=== PATIENT | female | born 1970 | race Caucasian/White ===

== ENCOUNTER 2018-03-03 09:00 | Day surgery (SDC) | payer BC ==
[2018-03-03] MEDS ORDERED: Ringers Lactate 1,000 ML IV ONE (09:15)
[2018-03-03 09:35] LABS: Specific Gravity 1.025 (1.005-1.030)
[2018-03-03] MEDS ORDERED: PROPOFOL 200 MG/20 ML VIAL IV ONE (10:13)
[2018-03-03] MEDS ORDERED: FENTANYL CITR 100 MCG/2 ML ONE ×2 (10:14→11:23)
[2018-03-03] MEDS ORDERED: LIDOCAINE 1% MPF 5 ML VIAL ONE ×2 (10:14→10:38)
[2018-03-03] MEDS ORDERED: MIDAZOLAM HCL 2 MG/2 ML INJ ONE (10:14)
[2018-03-03] MEDS ORDERED: ONDANSETRON HCL 40 MG/20 ML VIAL ONE (10:15)
[2018-03-03] MEDS: CEFAZOLIN/SWI 2gm 2 GM/20 ML SYR IV SCH ×2 (10:38→10:43)
[2018-03-03] MEDS ORDERED: NA CHLORIDE 0.9% 0 ML ONE (11:06)
[2018-03-03] MEDS ORDERED: KETOROLAC 30 MG/ML INJ ONE (11:34)
[2018-03-03] MEDS ORDERED: SILVER SULFADIAZINE 1% 25 GM TOP ONE ×2 (11:36→11:50)
[2018-03-03] MEDS: MEPERIDINE HCL 50 MG/ML AMP ONE ×4 (11:56→12:14)
[2018-03-03] MEDS ORDERED: CODEINE 30MG/APAP 300MG TAB ONE (12:59)
--- NOTE | 2018-03-03 13:45 | OP ---
Date of Procedure: 03/03/2018 Surgeon: Linda Torres MD Preoperative Diagnoses: Heavy bleeding and vulvar condylomata. Postoperative Diagnoses: Heavy bleeding and vulvar condylomata. Procedures Performed: 1.Hysteroscopy, dilation and curettage. 2.Vulvar colposcopy and ablation of condylomata. Anesthesia: General with LMA. Specimens: Endometrial curettings. Complications: None. Drains: None. Condition: The patient is stable. Indications: The patient is a 47-year-old with complaints of vulvar irregularities, which were biops ied and found to be condylomata. She also has abnormal bleeding, which was assessed with an ultrasou nd and she needs endometrial sampling to rule out endometrial atypia or malignancy. So she was conse nted for direct visualization and sampling with hysteroscopy, D and C, and visualization of the condy lomata with vulvar colposcopy followed by ablation of these. Description Of Procedure: After informed consent was verified, she was taken back to the OR, 2 g of Ancef were given due to the condyloma ablation. The patient was taken to the OR. She was placed in supine fashion on the operating table. After gen eral anesthesia was given, she was placed in a dorsal lithotomy position. Pelvic exam performed. Ut erus found to be anteflexed, 8 weeks size. No adnexal masses. On vulvar colposcopy, there were multiple condyloma along the labia minor and on the vestibule on the posterior aspect. Once all these were identified, then the colposcope was removed. Speculum was pl aced to expose the cervix. Anterior lip grasped with 2 Allis clamps. Prep x3 with Betadine was done . SlimLine diagnostic hysteroscope was used to perform direct hysteroscopy through the cervical avery l into the uterine cavity. Cavity was well visualized. Curettings were performed. There were no in tracavitary lesions. Both tubal ostia were unremarkable. Endometrium thickened. After the scope was removed, curettings were performed with a #2 curette. Adequate sampling was obta ined. The endometrial curettings were sent for permanent pathology. After the instruments were removed from the vagina, then attention was directed to the condylomata. All the condylomata that appeared to be pedunculated were all removed with the help of Adsons and sci ssors. The bases of all these were thoroughly ablated with a monopolar cautery at 30 massey power. Rest of the condylomata were all ablated. There were 11 of them on the labia minora. Then, the vest ibule had more on the right than on the left, but they were all ablated with the tip of the needle to which monopolar was hooked to. Once all this was done and she was cleaned up with saline, checked a gain for any more that were unrecognized. Nothing else was found, so this time proceeded with comple ting her procedure. She was extubated in the OR and taken to PACU in stable condition after Silvaden e cream was applied to the wounds and 4 x 4 Kerlix bandages were placed. She will follow up with me in 1 week. EBL minimal. No complications or drains. CELINA/MONO Voice ID: [id number] Report ID: [id number]
== END 2018-03-03 13:20 | disposition home or self-care (01) ==
LOC: OR 09:00
PROVIDERS: ATTEND Obstetrics & Gynecology
PROC: 0U5MXZZ Destruction of Vulva, External Approach (ICD-10-PCS; principal; 2018-03-03 10:45)
PROC: 0UDB7ZX Extraction of Endometrium, Via Natural or Artificial Opening, Diagnostic (ICD-10-PCS; 2018-03-03 10:45)
PROC: 0UJD8ZZ Inspection of Uterus and Cervix, Via Natural or Artificial Opening Endoscopic (ICD-10-PCS; 2018-03-03 10:45)
DX: N92.1 Excessive and frequent menstruation with irregular cycle (principal); A63.0 Anogenital (venereal) warts; I10 Essential (primary) hypertension; E78.5 Hyperlipidemia, unspecified; K21.9 Gastro-esophageal reflux disease without esophagitis; E66.9 Obesity, unspecified; Z68.37 Body mass index [BMI] 37.0-37.9, adult; F17.210 Nicotine dependence, cigarettes, uncomplicated; Z83.3 Family history of diabetes mellitus; Z80.3 Family history of malignant neoplasm of breast
CPT/HCPCS: 81025; 88305; J0690; J2175; J2250; J2405; J3010; J7030

== ENCOUNTER 2023-11-07 09:03 | Emergency (ER) | payer OTHER ==
[2023-11-07] MEDS ORDERED: NA CHLORIDE 0.9% 1,000 ML ONE (09:14)
[2023-11-07 09:30] LABS: Absolute Eosinophils 0.1 K/uL (0-0.5); Absolute Monocytes 0.6 K/uL (0.1-1.3); Absolute Neutrophil 11.1 K/uL (1.8-8.0); Basophils % 0.1 % (0-1.3); Eosinophils % 0.4 % (0-4.4); Hematocrit 39.3 % (36.0-45.0); Lymphocytes % 7.5 % (15.3-44.8); MCH 33.7 pg (27.0-35.0); MCV 102.2 fL (80-100); MPV 8.2 fL (7.6-11.3); Monocytes % 4.6 % (3.3-12.3); Neutrophils % 87.4 % (41.7-73.7); Platelets 243 thou/uL (152-406); RBC Red Blood Cell Count 3.85 M/uL (3.86-4.86); Red Cell Distribution Width 12.7 % (12.1-15.2)
[2023-11-07 09:42] LABS: Specific Gravity 1.016 (1.005-1.030); Sqamous Epithelial None Seen /HPF (None Seen); Urine Bacteria <20 /HPF (<20); Urine Bilirubin NEGATIVE (Negative); Urine Blood 3+ (OVER) (Negative); Urine Clarity Extremely Turbid (Clear); Urine Color Light-Orange (Yellow); Urine Culture Reflex Order REFLEXED; Urine Glucose NEGATIVE (Negative); Urine Ketones NEGATIVE (Negative); Urine Microscopic Reflex YN ORDER UMIC; Urine Mucus 1+ /HPF (None Seen); Urine Nitrite NEGATIVE (Negative); Urine Protein 2+ (Negative); Urine RBC >50 /HPF (None Seen); Urine Urobilinogen Normal (Normal); Urine WBC >50 /HPF (<5); Urine pH 6.5 (5.0-7.0)
[2023-11-07 09:48] LABS: Albumin 4.1 g/dL (3.4-5.0); Albumin/Globulin Ratio 1.2 (1.1-1.8); Bilirubin Total 0.8 mg/dL (0.2-1.0); Globulin 3.4 g/dL (2.3-3.5); Protein, Total 7.5 g/dL (6.4-8.2)
[2023-11-07 10:15] LABS: Blood Morphology Comment NOT SEEN (NOT SEEN); Platelet Estimate ADEQ; White Blood Cell Scan OK (OK)
--- NOTE | 2023-11-07 10:26 | RAD REPORT ---
EXAM DESCRIPTION: CTAbdomen Pelvis W Contrast - 11/07/2023 10:16 am CLINICAL HISTORY: HEMATURIA COMPARISON: No comparisons TECHNIQUE: CT of the abdomen and pelvis was performed. All CT scans are performed using dose optimization technique as appropriate and may include automated exposure control or mA/KV adjustment according to patient size. FINDINGS: Lower chest: Small hiatal hernia. Liver: No acute abnormality or suspicious lesions. Biliary: No biliary ductal dilatation. Stomach: No significant focal abnormality. Duodenum: No significant focal abnormality. Pancreas: No significant abnormality. Spleen: No significant abnormality. Adrenal: No suspicious lesions. Kidney/ureter: No hydronephrosis. 2 mm stone in the left kidney. Too small to characterize and/or marcus ign appearing renal lesions are noted. Retroperitoneum: No retroperitoneal adenopathy. Vascular: No aneurysm. Bowel: Normal appendix.. Peritoneum: No ascites or free air. Tiny fat containing umbilical hernia. Bladder: Bladder wall thickening and hyperenhancement. Reproductive: No adnexal masses. Bones: No acute fracture. Other: n/a IMPRESSION: Bladder wall thickening, stranding, and hyperenhancement concerning for cystitis. Nonobs tructive left nephrolithiasis. No ureteral calculi. Normal appendix.
--- NOTE | 2023-11-07 11:01 | EDPHYS ---
Physician Documentation [facility] Name: Lizabeth Hennessy Age: 53 yrs Sex: Female : 1970 Arrival Date: 11/07/2023 Time: 09:03 Bed 5 Private MD: Antonia Brar ED Physician Eugene Magaña HPI: 11/06 09:11 This 53 yrs old Female presents to ER via Ambulatory with complaints of Urinary Problem.[facility] 09:11 53-year-old female with a past medical history of hypertension and hyperlipidemia jh7 presents to the ER for hematuria. She reports that yesterday she noticed urinary frequency, only producing small amounts of urine, and slight dysuria. This morning she reports blood in the urine and producing small clots. She denies fever, flank pain, abdominal pain, or nausea/vomiting. Past surgical history includes a total hysterectomy. She states that the last time she urinated she was producing small clots as well.. Historical: - Allergies: 09:11 Sulfa (Sulfonamide Antibiotics); ll1 - Home Meds: 09:11 Lisinopril Oral [Active]; carvedilol phosphate oral [Active]; Simvastatin Oral ll1 [Active]; Naproxen Oral [Active]; - PMHx: 09:11 Hypertensive disorder; Hypercholesterolemia; ll1 - PSHx: 09:11 Total abdominal hysterectomy; ll1 - Immunization history:: Adult Immunizations up to date. - Infectious Disease History:: Denies. - Social history:: Smoking status: Reported history of juuling and/or vaping. ROS: 09:11 Constitutional: Per HPI 7 Exam: 09:11 Constitutional: This is a well developed, well nourished patient who is awake, alert, jh7 and in no acute distress. Head/Face: Normocephalic, atraumatic. Cardiovascular: Regular rate and rhythm with a normal S1 and S2. No gallops, murmurs, or rubs. Normal PMI, no JVD. No pulse deficits. Respiratory: Lungs have equal breath sounds bilaterally, clear to auscultation and percussion. No rales, rhonchi or wheezes noted. No increased work of breathing, no retractions or nasal flaring. Abdomen/GI: Soft, non-tender, with normal bowel sounds. No distension or tympany. No guarding or rebound. No evidence of tenderness throughout. Skin: Warm, dry with normal turgor. Normal color with no rashes, no lesions, and no evidence of cellulitis. MS/ Extremity: Pulses equal, no cyanosis. Neurovascular intact. Full, normal range of motion. Neuro: Awake and alert, GCS 15, oriented to person, place, time, and situation. Motor strength 5/5 in all extremities. Sensory grossly intact. Normal gait. 09:11 : CVA tenderness, is absent, Vital Signs: 09:13 BP 176 / 93; Pulse 87; Resp 17; Temp 97.5; Pulse Ox 100% on R/A; Weight 104.33 kg; ll1 Height 5 ft. 6 in. ; Pain 0/10; 09:25 BP 167 / 88; Pulse 82; Resp 18; Pulse Ox 100% on R/A; ld1 10:27 Pulse 79; Resp 18; Pulse Ox 100% on R/A; ld1 11:22 BP 147 / 60; Pulse 79; Resp 18; Pulse Ox 100% on R/A; ld1 09:13 Body Mass Index 37.12 (104.33 kg, 167.64 cm) ll1 09:13 Pain Scale: Adult ll1 MDM: 09:05 Patient medically screened. [facility] 10:32 Differential diagnosis: UTI, Pyelonephritis, cystitis, nephrolithiasis. Data reviewed: [facility] vital signs, nurses notes, lab test result(s), radiologic studies, CT scan. I considered the following discharge prescriptions or medication management in the emergency department Medications were administered in the Emergency Department. See MAR. Care significantly affected by the following chronic conditions: Hypertension. Counseling: I had a detailed discussion with the patient and/or guardian regarding the historical points, exam findings, and any diagnostic results supporting the discharge/admit diagnosis, to return to the emergency department if symptoms worsen or persist or if there are any questions or concerns that arise at home. Response to treatment: the patient's symptoms have markedly improved after treatment. 11/06 09:12 Order name: CBC with Diff; Complete Time: 10:18 [facility] 11/06 09:12 Order name: CMP; Complete Time: 09:59 [facility] 11/06 09:12 Order name: Urinalysis w/ reflexes; Complete Time: 59 [facility] 11/06 09:33 Order name: CBC Smear Scan; Complete Time: 10:18 [facility] 11/06 09:46 Order name: Urine Culture [facility] 11/06 09:59 Order name: CT Abd/Pelvis - IV Contrast Only; Complete Time: 10:28 [facility] 11/06 09:12 Order name: IV Saline Lock; Complete Time: 09:25 [facility] 11/06 09:12 Order name: Labs collected and sent; Complete Time: :25 [facility] Administered Medications: 09:25 Drug: NS 0.9% IV 1000 ml IV at 1 bolus Per protocol; 1000 mL bolus Route: IV; Rate: 1 ld1 bolus; Site: left antecubital; 11:12 Drug: Rocephin IV 1 grams IV at 1 calculated rate once; Given slow IV push per pharmacy ld1 instructions Route: IV; Rate: 1 calculated rate; Site: left antecubital; Disposition: 11:42 Co-signature as Attending Physician, Eugene Magaña MD I reviewed the patient's care rt provided by the Advanced Practice Provider and agree with the diagnosis and treatment plan. Disposition Summary: 11/07/23 11:00 Discharge Ordered Notes: Location: Home [facility] Problem: new [facility] Symptoms: have improved [facility] Condition: Stable [facility] Diagnosis - Acute cystitis with hematuria [facility] Followup: [facility] - With: Antonia Brar - When: 2 - 3 days - Reason: Recheck today's complaints Discharge Instructions: - Discharge Summary Sheet [facility] - Urinary Tract Infection, Adult [facility] Forms: - Medication Reconciliation Form [facility] - Thank You Letter [facility] - Antibiotic Education [facility] - Patient Portal Instructions [facility] - Leadership Thank You Letter [facility] Prescriptions: - Cipro 500 mg Oral tablet - take 1 tablet ORAL route every 12 hours for 7 days; 14 tablet; Refills: 0, [facility] Product Selection Permitted Signatures: Dispatcher [employer] Mary Diggs RN RN 1 Charmaine Ramos RN RN ld1 Seda Gabriel FNP DELIMBER OPERATOR [facility] Euegne Magaña MD MD rt Corrections: (The following items were deleted from the chart) 09: 09:12 CBC+H.LAB.BRZ ordered. EDMS EDMS 09:13 09:12 COMPREHENSIVE METABOLIC PANEL+C.LAB.BRZ ordered. EDMS EDMS :13 09:12 Urinalysis+U.LAB.BRZ ordered. EDMS EDMS
--- NOTE | 2023-11-07 11:01 | ER ---
Nurse's Notes [facility] Name: Lizabeth Hennessy Age: 53 yrs Sex: Female : 1970 Arrival Date: 11/07/2023 Time: 09:03 Bed 5 Private MD: Antonia Brar Diagnosis: Acute cystitis with hematuria Presentation: 11/06 09:13 Chief complaint: Patient states: Urinary frequency with oliguria noticed yesterday. ll1 Bloody urine started this AM with discomfort and pressure. No fever. Coronavirus screen: Client denies travel out of the [place] in the last 14 days. At this time, the client does not indicate any symptoms associated with coronavirus-19. Ebola Screen: Patient denies travel to an Ebola-affected area in the 21 days before illness onset. Initial Sepsis Screen: Does the patient meet any 2 criteria? No. Patient's initial sepsis screen is negative. Does the patient have a suspected source of infection? No. Patient's initial sepsis screen is negative. Risk Assessment: Do you want to hurt yourself or someone else? Patient reports no desire to harm self or others. Onset of symptoms was November 06, 2023. 09:13 Method Of Arrival: Ambulatory ll1 09:13 Acuity: MICHELE 3 ll1 Triage Assessment: 09:15 General: Appears uncomfortable, Behavior is calm, cooperative, appropriate for age. ll1 Pain: Denies pain. Neuro: No deficits noted. : Reports burning with urination, pain with urination, urgency, urinary frequency, blood in urne. Historical: - Allergies: 09:11 Sulfa (Sulfonamide Antibiotics); ll1 - Home Meds: 09:11 Lisinopril Oral [Active]; carvedilol phosphate oral [Active]; Simvastatin Oral ll1 [Active]; Naproxen Oral [Active]; - PMHx: 09:11 Hypertensive disorder; Hypercholesterolemia; ll1 - PSHx: 09:11 Total abdominal hysterectomy; ll1 - Immunization history:: Adult Immunizations up to date. - Infectious Disease History:: Denies. - Social history:: Smoking status: Reported history of juuling and/or vaping. Screenin:25 [facility] ED Fall Risk Assessment (Adult) History of falling in the last 3 months, ld1 including since admission No falls in past 3 months (0 pts). Abuse screen: Denies threats or abuse. Denies injuries from another. Nutritional screening: No deficits noted. Tuberculosis screening: No symptoms or risk factors identified. Assessment: 09:25 General: Appears in no apparent distress. comfortable, Behavior is calm, cooperative, ld1 appropriate for age. Pain: Denies pain. Neuro: Level of Consciousness is awake, alert, obeys commands, Oriented to person, place, time, situation. Cardiovascular: Capillary refill < 3 seconds Patient's skin is warm and dry. Respiratory: Airway is patent Respiratory effort is even, unlabored. GI: Abdomen is round non-distended. : Urine is tea colored Reports urgency, urinary frequency. EENT: No signs and/or symptoms were reported regarding the EENT system. Derm: No signs and/or symptoms reported regarding the dermatologic system. Musculoskeletal: No signs and/or symptoms reported regarding the musculoskeletal system. 11:21 Reassessment: Pt received antibiotic. Waiting on fluids to complete prior to D/C. ld1 Vital Signs: 09:13 BP 176 / 93; Pulse 87; Resp 17; Temp 97.5; Pulse Ox 100% on R/A; Weight 104.33 kg; ll1 Height 5 ft. 6 in. ; Pain 0/10; 09:25 BP 167 / 88; Pulse 82; Resp 18; Pulse Ox 100% on R/A; ld1 10:27 Pulse 79; Resp 18; Pulse Ox 100% on R/A; ld1 11:22 BP 147 / 60; Pulse 79; Resp 18; Pulse Ox 100% on R/A; ld1 09:13 Body Mass Index 37.12 (104.33 kg, 167.64 cm) ll1 09:13 Pain Scale: Adult ll1 ED Course: 09:05 Patient arrived in ED. mr 09:05 Seda Gabriel FNP [facility] jh7 09:05 Eugene Magaña MD is Attending Physician. jh7 09:06 Antonia Brar is Private Physician. mr 09:11 Charmaine Ramos, RN is Primary Nurse. ld1 09:11 Arm band placed on Patient placed in an exam room, on a stretcher. ll1 09:15 Triage completed. ll1 09:25 Patient has correct armband on for positive identification. Placed in gown. Bed in low ld1 position. Call light in reach. Side rails up X2. ekg monitor tech on. Pulse ox on. NIBP on. Door closed. Noise minimized. Warm blanket given. 09:25 No provider procedures requiring assistance completed. Inserted saline lock: 20 gauge ld1 in left antecubital area, using aseptic technique. Blood collected. 10:18 CT Abd/Pelvis - IV Contrast Only In Process Unspecified. EDHI 11:00 Antonia Brar is Referral Physician. [facility] 11:39 IV discontinued, intact, bleeding controlled, No redness/swelling at site. ld1 Administered Medications: 09:25 Drug: NS 0.9% IV 1000 ml IV at 1 bolus Per protocol; 1000 mL bolus Route: IV; Rate: 1 ld1 bolus; Site: left antecubital; 11:12 Drug: Rocephin IV 1 grams IV at 1 calculated rate once; Given slow IV push per pharmacy ld1 instructions Route: IV; Rate: 1 calculated rate; Site: left antecubital; Medication: 09:25 VIS not applicable for this client. ld1 Outcome: 11:00 Discharge ordered by . [facility] 11:39 Discharged to home ambulatory, ld1 11:39 Condition: stable 11:39 Discharge instructions given to patient, Instructed on discharge instructions, follow up and referral plans. medication usage, Demonstrated understanding of instructions, follow-up care, medications, Prescriptions given X 1, 11:39 Patient left the ED. ld1 Signatures: Dispatcher [employer] [facility] Malia Spence, Reg Reg mr Mary Lora, RN RN 1 Charmaine Ramos RN RN ld1 Seda Gabriel FNP [employer] MACHINE OPERATOR [facility]
[2023-11-07] MEDS ORDERED: CEFTRIAXONE 1000 MG/VIAL ONE (11:07)
[2023-11-07 11:58] VITALS: BP 147/60; TEMP 97.5; O2SAT 100
== END 2023-11-07 11:39 | disposition home or self-care (01) ==
LOC: ER 09:03
DX: N30.01 Acute cystitis with hematuria (principal); I10 Essential (primary) hypertension; Z88.2 Allergy status to sulfonamides
CPT/HCPCS: 87088; 85025; 81001; 87086; 36415; 80053; 74177; 96374; 99285; Q9967; J7030; J0696; 87077; 87186